=== PATIENT | male | born 1990 | race Caucasian/White ===

== ENCOUNTER 2020-10-31 21:39 | Emergency (ER) | payer SELFPAY ==
[~2020-10-31 21:39] MED LIST: AUGMENTIN 875-1 EACH PO
== END 2020-10-31 23:17 | disposition left against medical advice (07) ==
LOC: ER1 21:39
DX: Z53.21 Procedure and treatment not carried out due to patient leaving prior to being seen by health care provider (principal)
CPT/HCPCS: 93005

== ENCOUNTER 2020-11-01 08:12 | Emergency (ER) | payer SELFPAY ==
[2020-11-01 09:11] LABS: HEMOGLOBIN 16.1 gm/dl (14.0-17.5); RED BLOOD COUNT 5.14 M/UL (4.20-5.50); WHITE BLOOD COUNT 6.1 K/UL (4.5-11.0)
[2020-11-01 09:42] LABS: BUN/CREATININE RATIO 14 (0-10)
== END 2020-11-01 12:34 | disposition home or self-care (01) ==
LOC: ER1 08:12
PROVIDERS: Physician Assistant
DX: R07.89 Other chest pain (principal); F17.210 Nicotine dependence, cigarettes, uncomplicated
CPT/HCPCS: 71045; 80053; 82550; 82553; 83874; 84484; 85025; 93005; 99285

== ENCOUNTER → 2022-04-14 | Outpatient (CLI) | payer OTHER | LOC: HEART 5 13:00 | DX: R07.9 Chest pain, unspecified (principal) ==